=== PATIENT | female | born 1945 | race Caucasian/White ===

== ENCOUNTER 2016-05-25 15:07 | Inpatient (IN) | payer OTHER, MEDICARE ==
[2016-05-25] MEDS ORDERED: CARBOXYMETHYLCELLULOSE 1% 0.4 ML DROPERETTE EACHEYE PRN (16:27)
[2016-05-25] MEDS: PRESERVISION AREDS2 FORMULA EYE VIT 1 EACH PO SCH (17:43)
--- NOTE | 2016-05-25 17:55 | GHP ---
[f rep st] HISTORY AND PHYSICAL POST ADMISSION PHYSICIAN EVALUATION AND REHABILITATION TREATMENT PLAN. DATE OF ADMISSION: 05/25/2016 TIME OF EVALUATION: 0620. REFERRING FACILITY: [facility]. REFERRING PHYSICIAN: Dr. Mendoza IMPAIRMENT GROUP: [id number]. DATE OF ONSET: 05/21/2016. CONSULTING PHYSICIANS: She was seen in consultation by Orthopedic Surgery Service, Dr. Bobby, and with Neurosurgery. REHABILITATION DIAGNOSIS: Debility status post right femur fracture with history of left-sided weakness due to cerebrovascular accident. ETIOLOGIC DIAGNOSIS: Unilateral hip fracture. DATE OF SURGERY: 05/21/2016. HISTORY OF PRESENT ILLNESS: Mrs. Ruiz fell out of her power wheelchair on . She accidentally drove her power wheelchair over a curb. She fell on her right hip. There was no head trauma or loss of consciousness. She had pain. She went to the emergency department at [facility], where she was diagnosed with a right femur fracture. She was taken to surgery and was treated with an ORIF using an intramedullary implant. Hospital stay was complicated by anemia, for which she received a transfusion as well as IV iron. She had constipation, which was treated with suppository. She had pain, which eventually was managed with a hydrocodone/acetaminophen combination. She was concerned regarding anticoagulation as she has had a history of 2 hemorrhagic brainstem strokes; however, eventually with Neurosurgery consultation she was persuaded that her current risk of a deep venous thrombosis outweighs the risk of a recurrent intracranial bleed, so she was treated with enoxaparin. STUDIES AND LABS IN THE HOSPITAL: She had anemia with a hemoglobin as low as 6.7 yesterday morning. There was also thrombocytopenia with most recent platelet count being 71. This had remained stable over 3 days. Renal function and electrolytes were within normal limits. Chest x-ray done on 05/21/2016 was without any significant findings. PRECAUTIONS: She is a fall risk. She has orthopedic precautions with nonweightbearing on the right lower extremity. ACTIVE COMORBIDITIES: She has the tier 3 comorbidity of hemiparesis; otherwise , she has no tier 1, tier 2, or tier 3 comorbidities. PAST MEDICAL HISTORY: 1. 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 2. Recurrent brainstem hemorrhage in 1990. 3. Osteoporosis. 4. Depression. 5. Clostridium difficile diarrhea. 6. 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 7. Left femur fracture in 2014. PAST SURGICAL HISTORY: 1. Craniectomy. 2. Left femur ORIF. 3. Hysterectomy. 4. Abdominal surgery. 5. Elbow surgery. PRE-HOSPITAL MEDICATIONS: 1. Baclofen 10 mg p.o. t.i.d. 2. Clonazepam 1 mg p.o. twice b.i.d. 3. Duloxetine 60 mg p.o. q.h.s. 4. Hydrocodone/acetaminophen 5/325 one p.o. q.6 hours p.r.n. 5. Trimethoprim/sulfamethoxazole 160/800 mg 1 p.o. daily. 6. Vitamin A, lutein, minerals 1000/60 units daily. 7. Cholecalciferol 1000 units p.o. daily. 8. PreserVision vitamin 1 p.o. daily. ADMISSION MEDICATIONS: 1. Baclofen 10 p.o. t.i.d. 2. PreserVision 1 p.o. b.i.d. 3. Carboxymethylcellulose 1 drop each eye q.4 hours p.r.n. 4. Cholecalciferol 1000 units p.o. daily. 5. Clonazepam 1 mg p.o. b.i.d. 6. Duloxetine 60 mg p.o. q.h.s. 7. Enoxaparin 30 mg subcutaneous daily. 8. Ferrous sulfate 325 mg p.o. b.i.d. 9. Hydrocodone/acetaminophen 5/325 one tablet p.o. q.6 hours p.r.n. 10. Sulfamethoxazole/trimethoprim 800/160 one p.o. daily. ALLERGIES: Rifampin; she had anaphylaxis. FAMILY HISTORY: Noncontributory. SOCIAL HISTORY: She is retired. 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 She lives with her . She has had 3 sons: 1 lives locally, one lives in [place] , and 1 lives in [facility]. The son and [id number] from [place] are in town visiting at present. She is a nonsmoker and nondrinker. REVIEW OF SYSTEMS: She reports pain is adequately controlled. She denies dyspnea, though she was using oxygen. There is no cough. She denies chest pain and palpitations. She denies nausea, vomiting, constipation, and diarrhea. She reports a chronic subluxation of the left shoulder, but she is able to pull it back into place. She has some weakness with the left upper extremity but is able to use it to a certain extent. She has been ambulating. 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 She reports some abnormal sensation on the left upper and lower extremities, as if she is wearing a glove, and a poor position sense, especially with left upper extremity. She has had some weight loss in recent months. Other than that, a 10-point review of systems is negative. PHYSICAL EXAMINATION: VITAL SIGNS: Blood pressure is 90/49, heart rate is 96, respiratory rate is 16, oxygen saturation is 94% on 2 L, temperature is 37.3 degrees centigrade. Her weight is 44.9 kg for a body mass index of 18.1. GENERAL: This is a frail-appearing woman who appears her chronologic age, thin , cooperative, and in no acute distress. HEENT: Extraocular movements are intact. Pupils are equal, round, and reactive to light. Mucous membranes are moist. Dentition is in good condition. NECK: Supple but has mild right torticollis. HEART: Regular rate and rhythm with no murmurs, rubs, or gallops. LUNGS: Clear to auscultation bilaterally. ABDOMEN: Soft, nontender , nondistended with normoactive bowel sounds and no hepatosplenomegaly. EXTREMITIES: There is no cyanosis, clubbing, or edema. Radial and dorsalis pedis pulses are 2+ bilaterally. NEUROLOGIC: She is alert and oriented x3. Cranial nerves 2-12 are grossly intact. There is mild right torticollis. Right upper extremity strength is 5/5. Left upper extremity hand lead slot technician, biceps, and triceps are 4/5. Deltoid was not tested due to her positioning in bed. Lower extremity strength was not tested. Deep tendon reflexes are 2+ bilaterally at the biceps, patellar, and Achilles tendons. Sensation is intact to light touch and intact to double simultaneous stimulation. CURRENT LEVEL OF FUNCTION: Per the preadmission screen. Regarding diet, feeding, and swallowing, she was tolerating a regular-textured diet with thin liquids, and had been assessed by Speech Therapy with dysphagia ruled out. She required supervision and setup. Regarding grooming, she required minimal assistance seated. Regarding bathing, she required assistance. Regarding dressing, she was dependent for lower extremity dressing. For toileting, she required maximal assistance. For bladder function, she required maximal assistance. For bed mobility, she required [id number] assistance, verbal cues, and use of the bed rail. For transfers: [id number], was accomplished with maximal assistance of 2 people. She required tactile as well as verbal cues. Equipment: She was using a wheelchair. Balance was poor. Endurance was poor. Cognition: She needed tactile and verbal cues. IMPRESSION: Mrs. Ruiz is a 70-year-old woman who had an unfortunate fall from her motorized wheelchair and suffered a right femur fracture. She has had ORIF. She is nonweightbearing on the right lower extremity. This, along with her chronic weakness in the left upper extremity and lower extremity creates a challenge for her in terms of transfers, mobility, and activities of daily living. Hospital course was complicated by anemia and hypoxemia. She remained quite anemic the day before discharge. She received blood transfusions as well as IV iron supplementation. Thrombocytopenia was noted, but likely was not progressive, not consistent with heparin-associated thrombocytopenia, though its etiology is unclear. She is appropriate for inpatient rehabilitation where she will benefit from physical and occupational therapies to optimize her mobility and activities of daily living. She needs nursing care regarding fall risk, bowel and bladder, skin integrity, wound healing, and medication management. She needs physician care regarding thrombosis risk, hemorrhage risk, risk for neurologic deterioration, infectious risk, and pain management. Her goal is to return home with her family. For a safe discharge, it is hoped that she will be able to return to her previous level of function. Her mobility will primarily be by motorized wheelchair. She is likely to need some help with activities of daily living from her family. She will be able to ambulate short distances. She will need to be medically stable. There will be education on medications for the patient and her family, and there will be family training. She will receive therapy with physical therapy and occupational therapy for 60- 90 minutes per day per discipline on 5-7 days a week. Her expected duration of stay is 14-16 days. It is anticipated that upon discharge, she will benefit from home health services including physical therapy and occupational therapy. ASSESSMENT AND PLAN: 1. Debility and nonweightbearing on the right lower extremity following a fall from power wheelchair and right femur fracture, status post open reduction/ internal fixation. Physical and occupational therapy to optimize mobility and activities of daily living. 2. History of hemorrhagic cerebrovascular accident x2 in the brainstem with chronic left upper and lower extremity weakness. She was able to ambulate prior to her fall and fracture. 3. Osteoporosis. Continue cholecalciferol. She reports that she has been on bisphosphonates in the past and subsequently teriparatide. She has been followed by a bone specialist at [facility] at the [facility], though she has not had a DEXA scan in about a year and a half. Will continue cholecalciferol and will check a vitamin D level in the morning. 4. Anemia was quite significant postsurgical, as well as thrombocytopenia. Will check a CBC in the morning. 5. 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 Continue baclofen. 6. Pain management. She appears to be in very little pain considering what she has gone through. I will liberalize the dosing of the hydrocodone/ acetaminophen combination to 1-2 tablets q.4 hours p.r.n. 7. Depression. Continue her psychiatric medications of duloxetine and clonazepam. 8. History of chronic urinary tract infections. Continue suppressive therapy with trimethoprim/sulfamethoxazole. 9. History of Clostridium difficile. Unclear how remote this was. She has no signs or symptoms of Clostridium difficile. Will observe for diarrhea. 10. Prophylaxis. There was a neurosurgery consultation while she was in the hospital, and risk of deep vein thrombosis currently outweighs the risk of recurrent intracerebral hemorrhage. She will be continued on enoxaparin 30 mg subcutaneous daily. She does not appear to have any need for gastrointestinal prophylaxis. /[id number]/MODL MTDD
[2016-05-25] MEDS: HYDROCODONE/APAP 5/325 TAB PO PRN (19:34)
[2016-05-25] MEDS: BACLOFEN 10 MG TAB PO SCH (20:30)
[2016-05-25] MEDS: clonazePAM 1 MG TAB PO SCH (20:30)
[2016-05-25] MEDS ORDERED: DULoxetine 60 MG CAP PO SCH (21:00)
[2016-05-26] MEDS: HYDROCODONE/APAP 5/325 TAB PO PRN ×3 (02:10→20:27)
[2016-05-26 08:33] LABS: ABSOLUTE NRBC COUNT 0.02 10^3/uL (0-0.01); ADD DIFF? YES; ADD MORPH? NO; ADD SCAN? NO; ATYPICAL LYMPHOCYTE FLAG 0 (0-99); FRAGMENT RBC FLAG 0 (0-99); HEMATOCRIT 22.4 % (38.0-47.0); HEMOGLOBIN 7.1 g/dL (12.6-16.3); LEFT SHIFT FLG 30 (0-99); LIPEMIA HEMOLYSIS FLAG 80 (0-99); MEAN CELL HEMOGLOBIN 29.8 pg (27.9-34.1); MEAN CELL HEMOGLOBIN CONCENTR. 31.7 g/dL (32.4-36.7); MEAN CELL VOLUME 94.1 fL (81.5-99.8); MEAN PLATELET VOLUME 9.6 fL (8.7-11.7); NRBC-AUTO% 0.3 % (0.0-0.2); PLATELET CLUMPS FLAG 0 (0-99); PLATELET COUNT 106 10^3/uL (150-400); RED BLOOD CELL COUNT 2.38 10^6/uL (4.18-5.33); RED CELL DISTRIBUTION WIDTH 13.6 % (11.5-15.2)
[2016-05-26 08:56] LABS: ANION GAP 4 mEq/L (8-16); CALCIUM 7.9 mg/dL (8.5-10.4); CARBON DIOXIDE 36 mEq/l (22-31); CHLORIDE 101 mEq/L (97-110); CREATININE 0.4 mg/dL (0.6-1.0); GLOMERULAR FILTRATION RATE > 60; GLUCOSE 91 mg/dL (70-100); POTASSIUM 4.1 mEq/L (3.5-5.2); SODIUM 141 mEq/L (134-144)
--- NOTE | 2016-05-26 09:01 | SOAPPROG ---
SOAP Progress Note Assessment/Plan: Assessment: * Debility and nonweightbearing on the right lower extremity following a fall from power wheelchair and right femur fracture, status post open reduction/ internal fixation on 05/21/16. Physical and occupational therapy to optimize mobility and activities of daily living. * Pain management. Inadequate control overnight. Per her request, schedule hydrocodone/acetaminophen Q 4 hr; will also prescribe 1 tab cq.4 hours p.r.n. She declines option of long-acting morphine overnight. 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 She was able to ambulate prior to her fall and fracture. * Osteoporosis. Continue cholecalciferol. Has adequate replacement pre labs . She reports that she has been on bisphosphonates in the past and subsequently teriparatide. She has been followed by a bone specialist at [facility] at the [facility], though she has not had a DEXA scan in about a year and a half. * Anemia was quite significant postsurgical, as well as thrombocytopenia. Improving on CBC 05/26/16. 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 Continue baclofen. * Depression. Continue her psychiatric medications of duloxetine and clonazepam. * History of chronic urinary tract infections. Continue suppressive therapy with trimethoprim/sulfamethoxazole. * History of Clostridium difficile. Unclear how remote this was. She has no signs or symptoms of Clostridium difficile. Will observe for diarrhea. * Prophylaxis. There was a neurosurgery consultation while she was in the hospital, and risk of deep vein thrombosis currently outweighs the risk of recurrent intracerebral hemorrhage. She will be continued on enoxaparin 30 mg subcutaneous daily. She does not appear to have any need for gastrointestinal prophylaxis. 05/26/16 13:40 Subjective: Would like hydrocodone/acetaminophen more frequently. Was awake with pain at about 0500. O/W w/out complaint. pain in in R thigh to knee. No cough/dyspnea, f/c. BM yesterday. Objective: Vital Signs Temp Pulse Resp BP Pulse Ox 37.0 C 78 16 107/59 L 94 05/26/16 05:14 05/26/16 05:14 05/26/16 05:14 05/26/16 05:14 05/26/16 05:14 Laboratory Results 05/26/16 06:00 05/26/16 06:00 05/25/16 05/26/16 05/27/16 05:59 05:59 05:59 Intake Total 340 Output Total 1100 Balance -760 Physical Exam - Physical Exam General Appearance: WD/WN, alert, no apparent distress, thin Respiratory: normal breath sounds, No crackles, No rhonchi, No wheezing Cardiac/Chest: regular rate, rhythm, No edema, No diastolic murmur, No systolic murmur Skin: normal color, warm/dry Neuro/Psych: alert, normal mood/affect, oriented x 3 ICD10 Worksheet Patient Problems: Problems Problem Status Onset Hemiparesis affecting left side as late effect of cerebrovascular accident Acute Right femoral fracture Acute S/P ORIF (open reduction internal fixation) fracture Acute
--- NOTE | 2016-05-26 09:01 | PDOREHIP ---
Admission [facility] - Admission - 3 Day Assessment Period Admission Date/Day 1: 05/25/16 Day 2: 05/26/16 Day 3: 05/27/16 - Active Diagnoses Comorbidities and Co-existing Conditions at Admission: 61263. None of the Above - Skin Conditions Unhealed Pressure Ulcer (1 or more/Stage 1 or >)-Admission: 0. No
[2016-05-26] MEDS: CHOLECALCIFEROL VIT D3 1,000 UNITS TAB PO SCH (09:06)
[2016-05-26] MEDS: SULFAMETHOX/TMP 800/160 MG 1 TAB PO SCH (09:06)
[2016-05-26] MEDS: BACLOFEN 10 MG TAB PO SCH ×3 (09:06→20:28)
[2016-05-26] MEDS: clonazePAM 1 MG TAB PO SCH ×2 (09:07→20:29)
[2016-05-26] MEDS: ENOXAPARIN 30 MG/0.3 ML SYR SC SCH (09:07)
[2016-05-26] MEDS: FERROUS SULFATE 325 MG TAB PO SCH (09:07)
[2016-05-26] MEDS: PRESERVISION AREDS2 FORMULA EYE VIT 1 EACH PO SCH (09:13)
[2016-05-26 09:19] LABS: PLATELET ESTIMATE DECREASED (ADEQ); POLYCHROMASIA 1+
[2016-05-26 09:20] LABS: % SATURATION 16 % (20-55); TOTAL IRON BINDING CAPACITY 184 ug/dL (260-490)
[2016-05-26] MEDS: HYDROCODONE/APAP 5/325 TAB PO SCH ×4 (14:26→23:54)
[2016-05-26] MEDS ORDERED: [UNRECOGNIZED DRUG - OTHER] PO SCH (18:00)
[2016-05-26] MEDS: DULoxetine 30 MG CAP PO SCH (20:29)
[2016-05-27] MEDS: HYDROCODONE/APAP 5/325 TAB PO SCH ×6 (03:54→23:38)
[2016-05-27] MEDS: HYDROCODONE/APAP 5/325 TAB PO PRN ×2 (07:08→20:12)
[2016-05-27] MEDS: BACLOFEN 10 MG TAB PO SCH ×3 (08:38→20:11)
[2016-05-27] MEDS: SULFAMETHOX/TMP 800/160 MG 1 TAB PO SCH (08:38)
[2016-05-27] MEDS: CHOLECALCIFEROL VIT D3 1,000 UNITS TAB PO SCH (08:38)
[2016-05-27] MEDS: ENOXAPARIN 30 MG/0.3 ML SYR SC SCH (08:38)
[2016-05-27] MEDS: FERROUS SULFATE 325 MG TAB PO SCH (08:38)
[2016-05-27] MEDS: clonazePAM 1 MG TAB PO SCH ×2 (08:38→20:12)
[2016-05-27] MEDS: CENTRUM MVI PO SCH (09:00)
[2016-05-27] MEDS: [UNRECOGNIZED DRUG - OTHER] PO SCH ×2 (09:00→17:25)
[2016-05-27] MEDS: SENNOSIDES 1 TAB PO PRN (10:15)
[2016-05-27] MEDS: POLYETHYLENE GLYCOL 3350 17 GM PKT PO PRN (10:15)
--- NOTE | 2016-05-27 11:39 | SOAPPROG ---
SOAP Progress Note Assessment/Plan: Assessment: * Debility and nonweightbearing on the right lower extremity following a fall from power wheelchair and right femur fracture, status post open reduction/ internal fixation on 05/21/16. Physical and occupational therapy to optimize mobility and activities of daily living. * Pain management. Much improved. Continue current pain regimen: scheduled hydrocodone/acetaminophen Q 4 hr and 1 tab q.4 hours p.r.n. She declines option of long-acting morphine overnight. 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 She was able to ambulate CGA prior to her fall and fracture. * Osteoporosis. Continue cholecalciferol. Has adequate replacement pre labs . She reports that she has been on bisphosphonates in the past and subsequently teriparatide. She has been followed by a bone specialist at [facility] at the [facility], though she has not had a DEXA scan in about a year and a half. * Anemia was quite significant postsurgical, as well as thrombocytopenia. Improving on CBC 05/26/16. 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 Continue baclofen. * Depression. Continue her psychiatric medications of duloxetine and clonazepam. * History of chronic urinary tract infections. Continue suppressive therapy with trimethoprim/sulfamethoxazole. * History of Clostridium difficile. Unclear how remote this was. She has no signs or symptoms of Clostridium difficile. Will observe for diarrhea. * Prophylaxis. There was a neurosurgery consultation while she was in the hospital, and risk of deep vein thrombosis currently outweighs the risk of recurrent intracerebral hemorrhage. She will be continued on enoxaparin 30 mg subcutaneous daily. She does not appear to have any need for gastrointestinal prophylaxis. 05/27/16 11:40 Subjective: No complaints. Slept better. Had R leg muscle spasms at bedtime when positioned on L side for decubitus ulcer prevention; resolved after taking baclofen, hydrocodone/APAP and clonazepam. Took another PRN hydrocodone after repositioning to use bed paris overnight. No cough/dyspnea, f/c. Objective: Vital Signs Temp Pulse Resp BP Pulse Ox 36.8 C 81 17 104/60 95 05/27/16 06:46 05/27/16 06:46 05/27/16 06:46 05/27/16 06:46 05/27/16 06:46 Laboratory Results 05/26/16 06:00 05/26/16 06:00 05/26/16 05/27/16 05/28/16 05:59 05:59 05:59 Intake Total 340 900 Output Total 1100 1970 300 Balance -760 -1350 -300 Physical Exam - Physical Exam General Appearance: WD/WN, alert, no apparent distress, thin, other (Sitting up in wheelchair) Respiratory: normal breath sounds, No crackles, No rhonchi, No wheezing Cardiac/Chest: regular rate, rhythm, No edema, No diastolic murmur, No systolic murmur Neuro/Psych: alert, normal mood/affect, oriented x 3, motor weakness (LUE) ICD10 Worksheet Patient Problems: Problems Problem Status Onset Hemiparesis affecting left side as late effect of cerebrovascular accident Acute Right femoral fracture Acute S/P ORIF (open reduction internal fixation) fracture Acute - ICD10 Problem Qualifiers (1) Right femoral fracture Qualifiers: Encounter type: sequela Femur location: F Fracture type: closed Open fracture type: O Fracture morphology: F Fracture alignment: F Salter- Booth Fracture Type: S Fracture healing: F (2) S/P ORIF (open reduction internal fixation) fracture (3) Hemiparesis affecting left side as late effect of cerebrovascular accident
[2016-05-27] MEDS: DULoxetine 30 MG CAP PO SCH (20:12)
[2016-05-28] MEDS: HYDROCODONE/APAP 5/325 TAB PO SCH ×6 (03:23→20:52)
[2016-05-28] MEDS: CENTRUM MVI PO SCH (08:05)
[2016-05-28] MEDS: ENOXAPARIN 30 MG/0.3 ML SYR SC SCH (08:05)
[2016-05-28] MEDS: [UNRECOGNIZED DRUG - OTHER] PO SCH ×2 (08:05→17:44)
[2016-05-28] MEDS: clonazePAM 1 MG TAB PO SCH ×2 (08:06→20:52)
[2016-05-28] MEDS: POLYETHYLENE GLYCOL 3350 17 GM PKT PO PRN (08:06)
[2016-05-28] MEDS: SULFAMETHOX/TMP 800/160 MG 1 TAB PO SCH (08:06)
[2016-05-28] MEDS: FERROUS SULFATE 325 MG TAB PO SCH (08:06)
[2016-05-28] MEDS: BACLOFEN 10 MG TAB PO SCH ×4 (08:06→20:52)
[2016-05-28] MEDS: CHOLECALCIFEROL VIT D3 1,000 UNITS TAB PO SCH (08:06)
[2016-05-28] MEDS ORDERED: MAGNESIUM HYDROXIDE 30 ML UDCUP PO PRN (08:45)
--- NOTE | 2016-05-28 10:09 | SOAPPROG ---
SOAP Progress Note Assessment/Plan: Assessment: * Debility and nonweightbearing on the right lower extremity following a fall from power wheelchair and right femur fracture, status post open reduction/ internal fixation on 05/21/16. Initial FIM 67. 2-person transfer, sitting balance poor, very little strength LLE, no increased tone. routinely assists with dressing and bathing so OT goals are limited. Continue physical and occupational therapy to optimize mobility and activities of daily living. * Dysphagia: neck soft tissue stiffness, receiving myofascial work per WIPING RAG WASHER. * Pain management. Inadequate control overnight. Per her request, scheduled hydrocodone/acetaminophen Q 4 hr and prescribed 1 tab q.4 hours p.r.n. She declines option of long-acting morphine overnight. Muscle spasm L thigh when lays down at night: increase HS baclofen to 20 mg; continue 10 mg morning and mid-day. ROM exercised for leg extension. Ordered massage therapy consult. 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 She was able to ambulate prior to her fall and fracture. * Osteoporosis. Continue cholecalciferol. Has adequate replacement pre labs . She reports that she has been on bisphosphonates in the past and subsequently teriparatide. She has been followed by a bone specialist at [facility] at the [facility], though she has not had a DEXA scan in about a year and a half. * Anemia was quite significant postsurgical, as well as thrombocytopenia. Improving on CBC 05/26/16. Iron deficient, on supplement. * Hypoxia. Likely due to anemia. 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 Continue baclofen. * Depression. Continue her psychiatric medications of duloxetine and clonazepam. * History of chronic urinary tract infections. Continue suppressive therapy with trimethoprim/sulfamethoxazole. * History of Clostridium difficile. Unclear how remote this was. She has no signs or symptoms of Clostridium difficile. Will observe for diarrhea. * Prophylaxis. There was a neurosurgery consultation while she was in the hospital, and risk of deep vein thrombosis currently outweighs the risk of recurrent intracerebral hemorrhage. She will be continued on enoxaparin 30 mg subcutaneous daily. She does not appear to have any need for gastrointestinal prophylaxis. Attended staffing, 15 min. D/W case mgmt, nursing, PT, OT, WIPING RAG WASHER, rental sales agent, pharmacist. Goal to try to achieve 1-person transfers and bed mobility. Repeat staffing in 5 days, 05/23/16. had recent back surgery and is limited in ability to help. Consider SNF discharge on 06/04/16. 05/28/16 12:15 Subjective: C/O "rough night." When she lay down to sleep she had muscle spasms in R thigh which caused pain. Also had difficulty positioning head optimally for neck comfort. Requests MOM for bowels, per usual habit at home. O/W w/out complaint. Objective: Vital Signs Temp Pulse Resp BP Pulse Ox 37.3 C 94 16 94/47 L 92 05/28/16 08:00 05/28/16 08:00 05/28/16 08:00 05/28/16 08:00 05/28/16 08:00 Laboratory Results 05/26/16 06:00 05/26/16 06:00 05/27/16 05/28/16 05/29/16 05:59 05:59 05:59 Intake Total 900 Output Total 2250 700 300 Balance -1350 -700 -300 - Time Spent With Patient Time Spent With Patient: Greater than 35 mintes dawn time today, including more than 50% of time in coordination of care during staffing meeting, and counseling patient. Physical Exam - Physical Exam General Appearance: WD/WN, alert, no apparent distress, thin Respiratory: No respiratory distress, No accessory muscle use Cardiac/Chest: No edema Extremities: other (NT over thighs) Neuro/Psych: alert, normal mood/affect, oriented x 3, motor weakness (LUE & LLE) ICD10 Worksheet Patient Problems: Problems Problem Status Onset Hemiparesis affecting left side as late effect of cerebrovascular accident Acute Right femoral fracture Acute S/P ORIF (open reduction internal fixation) fracture Acute
[2016-05-28] MEDS: BISACODYL 10 MG SUPP PR PRN (16:11)
[2016-05-28] MEDS: DULoxetine 30 MG CAP PO SCH (20:51)
[2016-05-29] MEDS: HYDROCODONE/APAP 5/325 TAB PO SCH ×6 (00:16→21:24)
[2016-05-29] MEDS: FERROUS SULFATE 325 MG TAB PO SCH (09:12)
[2016-05-29] MEDS: SULFAMETHOX/TMP 800/160 MG 1 TAB PO SCH (09:12)
[2016-05-29] MEDS: BACLOFEN 10 MG TAB PO SCH ×4 (09:12→21:23)
[2016-05-29] MEDS: CHOLECALCIFEROL VIT D3 1,000 UNITS TAB PO SCH (09:13)
[2016-05-29] MEDS: [UNRECOGNIZED DRUG - OTHER] PO SCH ×2 (09:13→17:53)
[2016-05-29] MEDS: clonazePAM 1 MG TAB PO SCH ×2 (09:13→21:23)
[2016-05-29] MEDS: ENOXAPARIN 30 MG/0.3 ML SYR SC SCH (09:13)
[2016-05-29] MEDS: CENTRUM MVI PO SCH (09:14)
[2016-05-29] MEDS: BISACODYL 10 MG SUPP PR PRN (15:15)
--- NOTE | 2016-05-29 15:21 | SOAPPROG ---
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 05/29/2016- Doubling MOM for bowel management. Baclofen doubled last night for spasticity management, helpful per patient. Discussed monitoring of anemia with patient and her , and also discussed possible adjunct medications for spasticity management, if further rx needed. Remainder of plan unchanged. Labs reviewed, evidence of RBC production. 37 minutes were spent on the floor on patient care, the majority of which was spent in the counseling and coordination of care regarding anemia, spasticity management, and therapy goals. * Debility and nonweightbearing on the right lower extremity following a fall from power wheelchair and right femur fracture, status post open reduction/ internal fixation on 05/21/16. Initial FIM 67. 2-person transfer, sitting balance poor, very little strength LLE, no increased tone. routinely assists with dressing and bathing so OT goals are limited. Continue physical and occupational therapy to optimize mobility and activities of daily living. * Dysphagia: neck soft tissue stiffness, receiving myofascial work per [employer] EXAMINER. * Pain management. Inadequate control overnight. Per her request, scheduled hydrocodone/acetaminophen Q 4 hr and prescribed 1 tab q.4 hours p.r.n. She declines option of long-acting morphine overnight. Muscle spasm L thigh when lays down at night: increase HS baclofen to 20 mg; continue 10 mg morning and mid-day. ROM exercised for leg extension. Ordered massage therapy consult. 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 She was able to ambulate prior to her fall and fracture. * Osteoporosis. Continue cholecalciferol. Has adequate replacement per labs . She reports that she has been on bisphosphonates in the past and subsequently teriparatide. She has been followed by a bone specialist at [facility] at the [facility], though she has not had a DEXA scan in about a year and a half. * Anemia was quite significant postsurgical, as well as thrombocytopenia. Improving on CBC 4/19/17. Iron deficient, on supplement, labs indicate RBC production. Repeat CBC on 05/31. * Hypoxia. Likely due to anemia. Monitor. 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 Continue baclofen. * Depression. Continue her psychiatric medications of duloxetine and clonazepam. * History of chronic urinary tract infections. Continue suppressive therapy with trimethoprim/sulfamethoxazole. * History of Clostridium difficile. Unclear how remote this was. She has no signs or symptoms of Clostridium difficile. Will observe for diarrhea. * Prophylaxis. There was a neurosurgery consultation while she was in the hospital, and risk of deep vein thrombosis currently outweighs the risk of recurrent intracerebral hemorrhage. She will be continued on enoxaparin 30 mg subcutaneous daily. She does not appear to have any need for gastrointestinal prophylaxis. Goal to try to achieve 1-person transfers and bed mobility. had recent back surgery and is limited in ability to help. Consider SNF discharge on depending on progress and ability to DC home. 05/29/16 15:10 Subjective: CC: spasticity and anemia No acute events overnight. Pt notes increase in spasticity post surgery, but improved on increased dose of nighttime baclofen. May have tried tizanidine in the past, has not tried dantrolene. No new numbness, tingling, or weakness, pain controlled. Working well in therapies. low H&H, evidence of RBC production. Requesting increase of MOM to home dose for bowel management. Objective: Vital Signs Temp Pulse Resp BP Pulse Ox 37.1 C 87 16 110/68 95 05/29/16 06:20 05/29/16 06:20 05/29/16 06:20 05/29/16 06:20 05/29/16 06:20 Laboratory Results 05/26/16 06:00 05/26/16 06:00 05/28/16 05/29/16 05/30/16 05:59 05:59 05:59 Intake Total 1900 300 Output Total 700 1200 600 Balance -700 700 -300 Physical Exam - Physical Exam General Appearance: alert, no apparent distress, other (in PWC) EENT: other (eyes flutter occasionally, normal for her), No scleral icterus (R) , No scleral icterus (L) Respiratory: No respiratory distress, No accessory muscle use Cardiac/Chest: regular rate, rhythm, No edema Skin: normal color, warm/dry Extremities: No pedal edema, No swelling Neuro/Psych: alert, normal mood/affect ICD10 Worksheet Patient Problems: Problems Problem Status Onset Hemiparesis affecting left side as late effect of cerebrovascular accident Acute Right femoral fracture Acute S/P ORIF (open reduction internal fixation) fracture Acute
[2016-05-29] MEDS: DULoxetine 30 MG CAP PO SCH (21:24)
[2016-05-30] MEDS: HYDROCODONE/APAP 5/325 TAB PO SCH ×6 (01:24→20:00)
[2016-05-30] MEDS: ENOXAPARIN 30 MG/0.3 ML SYR SC SCH (09:09)
[2016-05-30] MEDS: BACLOFEN 10 MG TAB PO SCH ×4 (09:09→21:33)
[2016-05-30] MEDS: SULFAMETHOX/TMP 800/160 MG 1 TAB PO SCH (09:09)
[2016-05-30] MEDS: clonazePAM 1 MG TAB PO SCH ×2 (09:10→20:01)
[2016-05-30] MEDS: MAGNESIUM HYDROXIDE 30 ML UDCUP PO SCH (09:10)
[2016-05-30] MEDS: FERROUS SULFATE 325 MG TAB PO SCH (09:10)
[2016-05-30] MEDS: CHOLECALCIFEROL VIT D3 1,000 UNITS TAB PO SCH (09:10)
[2016-05-30] MEDS: [UNRECOGNIZED DRUG - OTHER] PO SCH ×2 (09:11→18:31)
[2016-05-30] MEDS: CENTRUM MVI PO SCH (09:12)
[2016-05-30] MEDS ORDERED: BACLOFEN 10 MG TAB PO PRN (13:57)
--- NOTE | 2016-05-30 14:05 | SOAPPROG ---
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 05/30/2016- adding additional baclofen PRN for breakthrough spasticity at night, otherwise doing well. * Debility and nonweightbearing on the right lower extremity following a fall from power wheelchair and right femur fracture, status post open reduction/ internal fixation on 05/21/16. Initial FIM 67. 2-person transfer, sitting balance poor, very little strength LLE, no increased tone. routinely assists with dressing and bathing so OT goals are limited. Continue physical and occupational therapy to optimize mobility and activities of daily living. * Dysphagia: neck soft tissue stiffness, receiving myofascial work per LABEL STAMPER. * Pain management. Inadequate control overnight. Per her request, scheduled hydrocodone/acetaminophen Q 4 hr and prescribed 1 tab q.4 hours p.r.n. She declines option of long-acting morphine overnight. Muscle spasm L thigh when lays down at night: increase HS baclofen to 20 mg; continue 10 mg morning and mid-day. ROM exercised for leg extension. Ordered massage therapy consult. 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 She was able to ambulate prior to her fall and fracture. * Osteoporosis. Continue cholecalciferol. Has adequate replacement per labs . She reports that she has been on bisphosphonates in the past and subsequently teriparatide. She has been followed by a bone specialist at [facility] at the [facility], though she has not had a DEXA scan in about a year and a half. * Anemia was quite significant postsurgical, as well as thrombocytopenia. Improving on CBC 05/26/16. Iron deficient, on supplement, labs indicate RBC production. Repeat CBC on 05/31. * Hypoxia. Likely due to anemia. Monitor. 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 Continue baclofen. * Depression. Continue her psychiatric medications of duloxetine and clonazepam. * History of chronic urinary tract infections. Continue suppressive therapy with trimethoprim/sulfamethoxazole. * History of Clostridium difficile. Unclear how remote this was. She has no signs or symptoms of Clostridium difficile. Will observe for diarrhea. * Prophylaxis. There was a neurosurgery consultation while she was in the hospital, and risk of deep vein thrombosis currently outweighs the risk of recurrent intracerebral hemorrhage. She will be continued on enoxaparin 30 mg subcutaneous daily. She does not appear to have any need for gastrointestinal prophylaxis. Goal to try to achieve 1-person transfers and bed mobility. had recent back surgery and is limited in ability to help. Consider SNF discharge on depending on progress and ability to DC home. 05/29/16 15:10 05/30/16 14:02 Subjective: CC: spasticity No acute events overnight. Continues to have some spasticity that keeps her awake, around 1 AM, wondering if additional baclofen may be helpful. Also counseled on the importance of stretching as part of the spasticity management strategy. No other new symptoms, no dyspnea or chest pain. Participating well in therapies. Objective: Vital Signs Temp Pulse Resp BP Pulse Ox 37.1 C 69 15 87/49 L 95 05/30/16 06:46 05/30/16 06:46 05/30/16 06:46 05/30/16 06:46 05/30/16 06:46 Laboratory Results 05/26/16 06:00 05/26/16 06:00 05/29/16 05/30/16 05/31/16 05:59 05:59 05:59 Intake Total 1900 600 300 Output Total 1200 1200 Balance 700 -600 300 Physical Exam - Physical Exam General Appearance: alert, no apparent distress, other (In PWC, spouse in room as well) EENT: other (paroxysmal eye flutter), No scleral icterus (R), No scleral icterus (L) Respiratory: No respiratory distress, No accessory muscle use Skin: normal color, warm/dry Extremities: No pedal edema, No swelling Neuro/Psych: alert, normal mood/affect, other (1 beat clonus on right ankle, no juan spasticity appreciated. ) ICD10 Worksheet Patient Problems: Problems Problem Status Onset Hemiparesis affecting left side as late effect of cerebrovascular accident Acute Right femoral fracture Acute S/P ORIF (open reduction internal fixation) fracture Acute
[2016-05-30] MEDS: HYDROCODONE/APAP 5/325 TAB PO PRN ×2 (15:57→23:21)
[2016-05-30] MEDS: DULoxetine 30 MG CAP PO SCH (20:00)
[2016-05-30] MEDS: SENNOSIDES 1 TAB PO PRN (22:19)
[2016-05-31] MEDS: HYDROCODONE/APAP 5/325 TAB PO SCH ×6 (03:27→21:18)
[2016-05-31 07:50] LABS: ADD DIFF? YES; ADD MORPH? NO; ADD SCAN? NO; ATYPICAL LYMPHOCYTE FLAG 30 (0-99); FRAGMENT RBC FLAG 0 (0-99); HEMATOCRIT 24.7 % (38.0-47.0); HEMOGLOBIN 7.7 g/dL (12.6-16.3); LEFT SHIFT FLG 30 (0-99); LIPEMIA HEMOLYSIS FLAG 80 (0-99); MEAN CELL HEMOGLOBIN 30.4 pg (27.9-34.1); MEAN CELL HEMOGLOBIN CONCENTR. 31.2 g/dL (32.4-36.7); MEAN CELL VOLUME 97.6 fL (81.5-99.8); MEAN PLATELET VOLUME 8.9 fL (8.7-11.7); PLATELET CLUMPS FLAG 0 (0-99); PLATELET COUNT 241 10^3/uL (150-400); RED BLOOD CELL COUNT 2.53 10^6/uL (4.18-5.33)
[2016-05-31] MEDS: MAGNESIUM HYDROXIDE 30 ML UDCUP PO SCH (08:21)
[2016-05-31] MEDS: SULFAMETHOX/TMP 800/160 MG 1 TAB PO SCH (08:22)
[2016-05-31] MEDS: BACLOFEN 10 MG TAB PO SCH ×4 (08:22→21:18)
[2016-05-31] MEDS: CHOLECALCIFEROL VIT D3 1,000 UNITS TAB PO SCH (08:22)
[2016-05-31] MEDS: clonazePAM 1 MG TAB PO SCH ×2 (08:22→21:18)
[2016-05-31] MEDS: FERROUS SULFATE 325 MG TAB PO SCH (08:22)
[2016-05-31] MEDS: ENOXAPARIN 30 MG/0.3 ML SYR SC SCH (08:23)
[2016-05-31] MEDS: [UNRECOGNIZED DRUG - OTHER] PO SCH ×2 (08:24→17:14)
[2016-05-31 08:32] LABS: PLATELET ESTIMATE ADEQUATE (ADEQ)
[2016-05-31 08:33] LABS: HYPERSEGMENTED NEUTROPHILS 1+; MACROCYTES 1+; POLYCHROMASIA 1+
[2016-05-31] MEDS: CENTRUM MVI PO SCH (08:36)
--- NOTE | 2016-05-31 15:07 | SOAPPROG ---
SOAP Progress Note Assessment/Plan: Assessment: * Debility and nonweightbearing on the right lower extremity following a fall from power wheelchair and right femur fracture, status post open reduction/ internal fixation on 05/21/16. Initial FIM 67. 2-person transfer, sitting balance poor, very little strength LLE, no increased tone; improving. routinely assists with dressing and bathing so OT goals are limited. Continue physical and occupational therapy to optimize mobility and activities of daily living. * Dysphagia: neck soft tissue stiffness, receiving myofascial work per PATCH WASHER. * Pain management. Inadequate control overnight. Per her request, scheduled hydrocodone/acetaminophen Q 4 hr and prescribed 1 tab q.4 hours p.r.n. Muscle spasm L thigh when lays down at night: increase HS baclofen to 20 mg; continue 10 mg morning and mid-day. ROM exercised for leg extension. Persisting despite increase in baclofen to up to 30 mg with PRN doses. Will d/c 2nd PRN baclofen order and initiate morphine SR 15 mg QHS. Ordered massage therapy consult. * Chronic benzodiazepine use. She wants to taper. Change AM clonazepam from 1 mg to 0.75 mg; continue 1 mg at HS. 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 She was able to ambulate prior to her fall and fracture. * Osteoporosis. Continue cholecalciferol. Has adequate replacement pre labs . She reports that she has been on bisphosphonates in the past and subsequently teriparatide. She has been followed by a bone specialist at [facility] at the [facility], though she has not had a DEXA scan in about a year and a half. * Anemia was quite significant postsurgical, as well as thrombocytopenia. Improving. Iron deficient, on supplement. * Hypoxia. Likely due to anemia. Improving. 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 Continue baclofen. * Depression. Continue her psychiatric medications of duloxetine and clonazepam. * History of chronic urinary tract infections. Continue suppressive therapy with trimethoprim/sulfamethoxazole. * History of Clostridium difficile. Unclear how remote this was. She has no signs or symptoms of Clostridium difficile. Will observe for diarrhea. * Prophylaxis. There was a neurosurgery consultation while she was in the hospital, and risk of deep vein thrombosis currently outweighs the risk of recurrent intracerebral hemorrhage. She will be continued on enoxaparin 30 mg subcutaneous daily. She does not appear to have any need for gastrointestinal prophylaxis. Goal to try to achieve 1-person transfers and bed mobility. Repeat staffing in 5 days, 05/23/16. had recent back surgery and is limited in ability to help. Consider SNF discharge on 06/04/16. 05/31/16 15:04 Subjective: Still has leg spasm when she lays down to sleep at night. Extra baclofen helped the first night but not since, even with further increase to 30 mg. [place] seems to help for about 2 hours then she awakens from the pain. She thinks if it did not hurt it would not bother her. Has been doing ROM with PT. Objective: Vital Signs Temp Pulse Resp BP Pulse Ox 36.6 C 80 17 104/61 95 05/31/16 06:16 05/31/16 06:16 05/31/16 06:16 05/31/16 06:16 05/31/16 06:16 Laboratory Results 05/31/16 06:25 05/26/16 06:00 05/30/16 05/31/16 06/01/16 05:59 05:59 05:59 Intake Total 600 1100 902 Output Total 1200 1525 650 Balance -600 -425 252 Physical Exam - Physical Exam General Appearance: WD/WN, alert, no apparent distress, thin Respiratory: normal breath sounds, No crackles, No rhonchi, No wheezing Cardiac/Chest: regular rate, rhythm, No edema Skin: normal color, warm/dry Neuro/Psych: alert, normal mood/affect, oriented x 3 ICD10 Worksheet Patient Problems: Problems Problem Status Onset Hemiparesis affecting left side as late effect of cerebrovascular accident Acute Right femoral fracture Acute S/P ORIF (open reduction internal fixation) fracture Acute
[2016-05-31] MEDS: BISACODYL 10 MG SUPP PR PRN (18:30)
[2016-05-31] MEDS: DULoxetine 30 MG CAP PO SCH (21:18)
[2016-05-31] MEDS: morphINE SR 15 MG TAB PO SCH (23:41)
[2016-06-01] MEDS: HYDROCODONE/APAP 5/325 TAB PO SCH ×6 (01:07→22:26)
[2016-06-01] MEDS: [UNRECOGNIZED DRUG - OTHER] PO SCH ×2 (08:51→17:20)
[2016-06-01] MEDS: BACLOFEN 10 MG TAB PO SCH ×4 (08:53→22:26)
[2016-06-01] MEDS: CHOLECALCIFEROL VIT D3 1,000 UNITS TAB PO SCH (08:53)
[2016-06-01] MEDS: ENOXAPARIN 30 MG/0.3 ML SYR SC SCH (08:53)
[2016-06-01] MEDS: SULFAMETHOX/TMP 800/160 MG 1 TAB PO SCH (08:54)
[2016-06-01] MEDS: CENTRUM MVI PO SCH (08:54)
[2016-06-01] MEDS: FERROUS SULFATE 325 MG TAB PO SCH (08:54)
[2016-06-01] MEDS: MAGNESIUM HYDROXIDE 30 ML UDCUP PO SCH (09:12)
[2016-06-01] MEDS ORDERED: clonazePAM 1 MG TAB PO ONE (09:30)
[2016-06-01] MEDS: clonazePAM 0.5 MG TAB PO SCH (09:38)
--- NOTE | 2016-06-01 14:22 | SOAPPROG ---
SOAP Progress Note Assessment/Plan: Assessment: * Debility and nonweightbearing on the right lower extremity following a fall from power wheelchair and right femur fracture, status post open reduction/ internal fixation on 05/21/16. Initial FIM 67. 2-person transfer, sitting balance poor, very little strength LLE, no increased tone; improving. routinely assists with dressing and bathing so OT goals are limited. Continue physical and occupational therapy to optimize mobility and activities of daily living. * Dysphagia: neck soft tissue stiffness, receiving myofascial work per CAFE COOK. * Pain management. Still with muscle spasm overnight but pain improved with morphine SR 15 mg at HS starting 05/31/16, and slept better. Continue, scheduled hydrocodone/acetaminophen Q 4 hr and prescribed 1 tab q.4 hours p.r.n ; HS baclofen to 20 mg; continue 10 mg morning and mid-day. ROM exercised for leg extension. HS baclofen 30 mg did not help. Ordered massage therapy consult. * Chronic benzodiazepine use. She wants to taper. Changed AM clonazepam from 1 mg to 0.75 mg starting 06/01/16; continue 1 mg at HS. 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 She was able to ambulate prior to her fall and fracture. * Osteoporosis. Continue cholecalciferol. Has adequate replacement pre labs . She reports that she has been on bisphosphonates in the past and subsequently teriparatide. She has been followed by a bone specialist at [facility] at the [facility], though she has not had a DEXA scan in about a year and a half. * Anemia was quite significant postsurgical, as well as thrombocytopenia. Improving. Iron deficient, on supplement. * Hypoxia. Likely due to anemia. Improving. 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 Continue baclofen. * Depression. Continue her psychiatric medications of duloxetine and clonazepam. * History of chronic urinary tract infections. Continue suppressive therapy with trimethoprim/sulfamethoxazole. * History of Clostridium difficile. Unclear how remote this was. She has no signs or symptoms of Clostridium difficile. Will observe for diarrhea. * Prophylaxis. There was a neurosurgery consultation while she was in the hospital, and risk of deep vein thrombosis currently outweighs the risk of recurrent intracerebral hemorrhage. She will be continued on enoxaparin 30 mg subcutaneous daily. She does not appear to have any need for gastrointestinal prophylaxis. Goal to try to achieve 1-person transfers and bed mobility. Repeat staffing in 5 days, 06/02/16. had recent back surgery and is limited in ability to help. Consider SNF discharge on 06/04/16. 06/01/16 14:17 Subjective: Did better overnight. Still had R thigh spasms but not as painful and was able to return to sleep. [place] groggy in AM but reports that morphine SR not given until 11:00PM. Bowels moving. Objective: Vital Signs Temp Pulse Resp BP Pulse Ox 36.8 C 69 18 88/45 L 97 06/01/16 08:00 06/01/16 08:00 06/01/16 08:00 06/01/16 08:00 06/01/16 08:00 Laboratory Results 05/31/16 06:25 05/26/16 06:00 05/31/16 06/01/16 06/02/16 05:59 05:59 05:59 Intake Total 1100 1702 280 Output Total 1525 2150 400 Balance -425 -448 -120 Physical Exam - Physical Exam General Appearance: WD/WN, alert, no apparent distress, thin Respiratory: No respiratory distress, No accessory muscle use Skin: normal color, warm/dry Neuro/Psych: alert, normal mood/affect, oriented x 3, motor weakness (LUE & LLE) ICD10 Worksheet Patient Problems: Problems Problem Status Onset Hemiparesis affecting left side as late effect of cerebrovascular accident Acute Right femoral fracture Acute S/P ORIF (open reduction internal fixation) fracture Acute
[2016-06-01] MEDS: HYDROCODONE/APAP 5/325 TAB PO PRN (19:16)
[2016-06-01] MEDS: morphINE SR 15 MG TAB PO SCH (19:16)
[2016-06-01] MEDS: DULoxetine 30 MG CAP PO SCH (21:22)
[2016-06-01] MEDS: clonazePAM 1 MG TAB PO SCH (21:22)
[2016-06-02] MEDS: HYDROCODONE/APAP 5/325 TAB PO SCH ×6 (03:42→22:01)
[2016-06-02] MEDS: [UNRECOGNIZED DRUG - OTHER] PO SCH ×2 (09:03→18:00)
[2016-06-02] MEDS: CHOLECALCIFEROL VIT D3 1,000 UNITS TAB PO SCH (09:04)
[2016-06-02] MEDS: BACLOFEN 10 MG TAB PO SCH ×4 (09:04→22:02)
[2016-06-02] MEDS: FERROUS SULFATE 325 MG TAB PO SCH (09:05)
[2016-06-02] MEDS: CENTRUM MVI PO SCH (09:06)
[2016-06-02] MEDS: MAGNESIUM HYDROXIDE 30 ML UDCUP PO SCH (09:06)
[2016-06-02] MEDS: SULFAMETHOX/TMP 800/160 MG 1 TAB PO SCH (09:07)
[2016-06-02] MEDS: clonazePAM 0.5 MG TAB PO SCH (09:09)
[2016-06-02] MEDS: ENOXAPARIN 30 MG/0.3 ML SYR SC SCH (09:13)
--- NOTE | 2016-06-02 09:40 | SOAPPROG ---
SOAP Progress Note Assessment/Plan: Assessment: * Debility and nonweightbearing on the right lower extremity following a fall from power wheelchair and right femur fracture, status post open reduction/ internal fixation on 05/21/16. Initial FIM 67 on 05/28/16; iincrease to 73 of . Slide-board transfer min - mod A depending on fatigue. Has stood in parallel bars keeping R foot off the floor. routinely assists with dressing and bathing so OT goals are limited but goal to reduce burden of care. Continue physical and occupational therapy to optimize mobility and activities of daily living. * Dysphagia: neck soft tissue stiffness, receiving myofascial work per BELT GLASS SANDER. * Pain management. Still with muscle spasm overnight but pain improved with morphine SR 15 mg at HS starting 05/31/16, and sleeping better. Continue, scheduled hydrocodone/acetaminophen Q 4 hr and prescribed 1 tab q.4 hours p.r.n ; HS baclofen to 20 mg; continue 10 mg morning and mid-day. ROM exercised for leg extension. HS baclofen 30 mg did not help. Ordered massage therapy consult. * Chronic benzodiazepine use. She wants to taper. Changed AM clonazepam from 1 mg to 0.75 mg starting 06/01/16; continue 1 mg at HS. 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 She was able to ambulate prior to her fall and fracture. * Anemia was quite significant postsurgical, as well as thrombocytopenia. Improving. Iron deficient, on supplement. * Hypoxia. Likely due to anemia. Improving. 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 Continue baclofen. * Osteoporosis. Continue cholecalciferol. Has adequate replacement pre labs . She reports that she has been on bisphosphonates in the past and subsequently teriparatide. She has been followed by a bone specialist at [facility] the [facility], though she has not had a DEXA scan in about a year and a half. * Depression. Continue her psychiatric medications of duloxetine and clonazepam. * History of chronic urinary tract infections. Continue suppressive therapy with trimethoprim/sulfamethoxazole. * History of Clostridium difficile. Unclear how remote this was. She has no signs or symptoms of Clostridium difficile. Will observe for diarrhea. * Prophylaxis. There was a neurosurgery consultation while she was in the hospital, and risk of deep vein thrombosis currently outweighs the risk of recurrent intracerebral hemorrhage. She will be continued on enoxaparin 30 mg subcutaneous daily. She does not appear to have any need for gastrointestinal prophylaxis. Attended staffing, 15 min. D/W case mgmt, nursing, chemical plant worker, pharmacist, PT, OT, BELT GLASS SANDER. Attended family meeting, 30 min, present. Plan discharge to SNF until weightbearing restored RLE. had recent back surgery and is limited in ability to help. Discharge planned for 06/10/16. 06/02/16 16:33 Subjective: R leg spasms and pain again last night; took Van along with morphine SR and had resolution, then slept well. No cough/dyspnea, no f/c. Objective: Vital Signs Temp Pulse Resp BP Pulse Ox 37.2 C 81 16 84/46 L 95 06/02/16 05:14 06/02/16 05:14 06/02/16 05:14 06/02/16 05:15 06/02/16 05:14 Laboratory Results 05/31/16 06:25 05/26/16 06:00 06/01/16 06/02/16 06/03/16 05:59 05:59 05:59 Intake Total 1702 560 150 Output Total 2150 1250 Balance -448 -690 150 - Time Spent With Patient Time Spent With Patient: Greater than 35 min floor time today, including more than 50% of time in coordination of care during staffing meeting and family meeting, and counseling patient and . Physical Exam - Physical Exam General Appearance: WD/WN, alert, no apparent distress Respiratory: normal breath sounds, No crackles, No rhonchi, No wheezing Cardiac/Chest: regular rate, rhythm, No edema, No diastolic murmur, No systolic murmur Skin: normal color, warm/dry Neuro/Psych: alert, normal mood/affect, oriented x 3, motor weakness (LUE & LLE) ICD10 Worksheet Patient Problems: Problems Problem Status Onset Hemiparesis affecting left side as late effect of cerebrovascular accident Acute Right femoral fracture Acute S/P ORIF (open reduction internal fixation) fracture Acute
[2016-06-02] MEDS: HYDROCODONE/APAP 5/325 TAB PO PRN (12:13)
[2016-06-02] MEDS: clonazePAM 1 MG TAB PO SCH (22:02)
[2016-06-02] MEDS: DULoxetine 30 MG CAP PO SCH (22:02)
[2016-06-02] MEDS: morphINE SR 15 MG TAB PO SCH (22:02)
[2016-06-03] MEDS: HYDROCODONE/APAP 5/325 TAB PO SCH ×6 (02:00→21:54)
[2016-06-03] MEDS: ENOXAPARIN 30 MG/0.3 ML SYR SC SCH (08:59)
[2016-06-03] MEDS: BACLOFEN 10 MG TAB PO SCH ×4 (09:02→21:53)
[2016-06-03] MEDS: [UNRECOGNIZED DRUG - OTHER] PO SCH ×2 (09:02→18:23)
[2016-06-03] MEDS: FERROUS SULFATE 325 MG TAB PO SCH (09:03)
[2016-06-03] MEDS: CHOLECALCIFEROL VIT D3 1,000 UNITS TAB PO SCH (09:03)
[2016-06-03] MEDS: clonazePAM 0.5 MG TAB PO SCH (09:04)
[2016-06-03] MEDS: SULFAMETHOX/TMP 800/160 MG 1 TAB PO SCH (09:04)
[2016-06-03] MEDS: MAGNESIUM HYDROXIDE 30 ML UDCUP PO SCH (09:06)
[2016-06-03] MEDS: CENTRUM MVI PO SCH (09:06)
--- NOTE | 2016-06-03 09:13 | SOAPPROG ---
SOAP Progress Note Assessment/Plan: Assessment/Plan: 06/03/2016- some bowel incontinence after a period of constipation, now with loose stools. MOM to PRN, scheduling miralax and senna as discussed with patient and DUNCAN Cain. * Debility and nonweightbearing on the right lower extremity following a fall from power wheelchair and right femur fracture, status post open reduction/ internal fixation on 05/21/16. Initial FIM 67 on 05/28/16; iincrease to 73 of . Slide-board transfer min - mod A depending on fatigue. Has stood in parallel bars keeping R foot off the floor. routinely assists with dressing and bathing so OT goals are limited but goal to reduce burden of care. Continue physical and occupational therapy to optimize mobility and activities of daily living. * Dysphagia: neck soft tissue stiffness, receiving myofascial work per [employer]. * Pain management. Still with muscle spasm overnight but pain improved with morphine SR 15 mg at HS starting 05/31/16, and sleeping better. Continue, scheduled hydrocodone/acetaminophen Q 4 hr and prescribed 1 tab q.4 hours p.r.n ; HS baclofen to 20 mg; continue 10 mg morning and mid-day. ROM exercised for leg extension. HS baclofen 30 mg did not help. Ordered massage therapy consult. * Chronic benzodiazepine use. She wants to taper. Changed AM clonazepam from 1 mg to 0.75 mg starting 06/01/16; continue 1 mg at HS. 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 She was able to ambulate prior to her fall and fracture. * Anemia was quite significant postsurgical, as well as thrombocytopenia. Improving. Iron deficient, on supplement. * Hypoxia. Likely due to anemia. Improving. * Constipation: on MOM QAM at home, but a bit loose in hospital. 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 Continue baclofen. * Osteoporosis. Continue cholecalciferol. Has adequate replacement pre labs . She reports that she has been on bisphosphonates in the past and subsequently teriparatide. She has been followed by a bone specialist at [facility] at the [facility], though she has not had a DEXA scan in about a year and a half. * Depression. Continue her psychiatric medications of duloxetine and clonazepam. * History of chronic urinary tract infections. Continue suppressive therapy with trimethoprim/sulfamethoxazole. * History of Clostridium difficile. Unclear how remote this was. She has no signs or symptoms of Clostridium difficile. Will observe for diarrhea. * Prophylaxis. There was a neurosurgery consultation while she was in the hospital, and risk of deep vein thrombosis currently outweighs the risk of recurrent intracerebral hemorrhage. She will be continued on enoxaparin 30 mg subcutaneous daily. She does not appear to have any need for gastrointestinal prophylaxis. Plan discharge to SNF until weightbearing restored RLE. had recent back surgery and is limited in ability to help. Discharge planned for 06/10/16. 06/03/16 09:11 06/03/16 10:57 Subjective: CC: bowel incontinence No acute events overnight. Pt had some incont of stool and loose stool after a period of constipation. Would like to back off on bowel meds, but counseled on importance of a regular bowel movement to prevent constipation and incontinence. Otherwise doing well, sleeping well, pain controlled. No new numbness, tingling or weakness. Objective: Vital Signs Temp Pulse Resp BP Pulse Ox 36.9 C 80 16 98/58 L 96 06/03/16 06:34 06/03/16 06:34 06/03/16 06:34 06/03/16 06:34 06/03/16 06:34 Laboratory Results 05/31/16 06:25 05/26/16 06:00 06/02/16 06/03/16 06/04/16 05:59 05:59 05:59 Intake Total 560 950 300 Output Total 1250 2550 600 Balance -690 -1600 -300 Physical Exam - Physical Exam General Appearance: alert, no apparent distress EENT: No scleral icterus (R), No scleral icterus (L) Respiratory: lungs clear, normal breath sounds, No respiratory distress, No accessory muscle use Cardiac/Chest: normal peripheral pulses, regular rate, rhythm, No edema Abdomen: non-tender, soft Skin: normal color, warm/dry (cool on hands) Neuro/Psych: alert, normal mood/affect ICD10 Worksheet Patient Problems: Problems Problem Status Onset Hemiparesis affecting left side as late effect of cerebrovascular accident Acute Right femoral fracture Acute S/P ORIF (open reduction internal fixation) fracture Acute
[2016-06-03] MEDS ORDERED: MAGNESIUM HYDROXIDE 30 ML UDCUP PO PRN (10:57)
[2016-06-03] MEDS: morphINE SR 15 MG TAB PO SCH (21:53)
[2016-06-03] MEDS: DULoxetine 30 MG CAP PO SCH (21:53)
[2016-06-03] MEDS: clonazePAM 1 MG TAB PO SCH (21:53)
[2016-06-03] MEDS: SENNOSIDES 1 TAB PO SCH (21:54)
[2016-06-04] MEDS: HYDROCODONE/APAP 5/325 TAB PO SCH ×6 (02:02→21:26)
[2016-06-04] MEDS: [UNRECOGNIZED DRUG - OTHER] PO SCH ×2 (08:38→17:43)
[2016-06-04] MEDS: CHOLECALCIFEROL VIT D3 1,000 UNITS TAB PO SCH (08:44)
[2016-06-04] MEDS: BACLOFEN 10 MG TAB PO SCH ×4 (08:44→21:26)
[2016-06-04] MEDS: POLYETHYLENE GLYCOL 3350 17 GM PKT PO SCH (08:45)
[2016-06-04] MEDS: SENNOSIDES 1 TAB PO SCH ×2 (08:45→20:26)
[2016-06-04] MEDS: SULFAMETHOX/TMP 800/160 MG 1 TAB PO SCH (08:45)
[2016-06-04] MEDS: clonazePAM 0.5 MG TAB PO SCH (08:46)
[2016-06-04] MEDS: FERROUS SULFATE 325 MG TAB PO SCH (08:46)
[2016-06-04] MEDS: ENOXAPARIN 30 MG/0.3 ML SYR SC SCH (08:47)
[2016-06-04] MEDS: CENTRUM MVI PO SCH (08:47)
--- NOTE | 2016-06-04 18:05 | SOAPPROG ---
SOAP Progress Note Assessment/Plan: Assessment: * Debility and nonweightbearing on the right lower extremity following a fall from power wheelchair and right femur fracture, status post open reduction/ internal fixation on 05/21/16. Initial FIM 67 on 05/28/16; increase to 73 of 06/02. Slide-board transfer min - mod A depending on fatigue. Has stood in parallel bars keeping R foot off the floor. routinely assists with dressing and bathing so OT goals are limited but goal to reduce burden of care. Continue physical and occupational therapy to optimize mobility and activities of daily living. * Dysphagia: neck soft tissue stiffness, receiving myofascial work per DELIVERY MERCHANDISER. * Pain management. Still with muscle spasm overnight but pain improved with morphine SR 15 mg at HS starting 05/31/16, and sleeping better. Continue, scheduled hydrocodone/acetaminophen Q 4 hr and prescribed 1 tab q.4 hours p.r.n ; HS baclofen to 20 mg; continue 10 mg morning and mid-day. ROM exercised for leg extension. HS baclofen 30 mg did not help. Ordered massage therapy consult. * Chronic benzodiazepine use. She wants to taper. Changed AM clonazepam from 1 mg to 0.75 mg starting 06/01/16; continue 1 mg at HS. 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 She was able to ambulate prior to her fall and fracture. * Anemia was quite significant postsurgical, as well as thrombocytopenia. Improving. Iron deficient, on supplement. * Hypoxia. Likely due to anemia. Improving. 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 Continue baclofen. * Osteoporosis. Continue cholecalciferol. Has adequate replacement pre labs . She reports that she has been on bisphosphonates in the past and subsequently teriparatide. She has been followed by a bone specialist at [facility], though she has not had a DEXA scan in about a year and a half. * Depression. Continue her psychiatric medications of duloxetine and clonazepam. * History of chronic urinary tract infections. Continue suppressive therapy with trimethoprim/sulfamethoxazole. * History of Clostridium difficile. Unclear how remote this was. She has no signs or symptoms of Clostridium difficile. Will observe for diarrhea. * Prophylaxis. There was a neurosurgery consultation while she was in the hospital, and risk of deep vein thrombosis currently outweighs the risk of recurrent intracerebral hemorrhage. She will be continued on enoxaparin 30 mg subcutaneous daily. She does not appear to have any need for gastrointestinal prophylaxis. Attended staffing, 15 min. D/W case mgmt, nursing, senior ux designer, pharmacist, PT, OT, DELIVERY MERCHANDISER. Attended family meeting, 30 min, present. had recent back surgery and is limited in ability to help. Discharge planned for 06/10/16. 06/02/16 16:33 06/04/16 18:04 Subjective: No complaints. Slept well. Pain adequately controlled. No f/c, cough/ dyspnea. Had follow-up with orthopedics today and will be NWB R leg for 6 weeks. Objective: Vital Signs Temp Pulse Resp BP Pulse Ox 36.8 C 73 14 97/50 L 98 06/04/16 06:28 06/04/16 06:28 06/04/16 06:28 06/04/16 06:28 06/04/16 06:28 Laboratory Results 05/31/16 06:25 05/26/16 06:00 06/03/16 06/04/16 06/05/16 05:59 05:59 05:59 Intake Total 950 1680 330 Output Total 2550 1150 300 Balance -1600 530 30 Physical Exam - Physical Exam General Appearance: WD/WN, alert, no apparent distress, thin Respiratory: No respiratory distress, No accessory muscle use Skin: normal color, warm/dry Neuro/Psych: alert, normal mood/affect, oriented x 3 ICD10 Worksheet Patient Problems: Problems Problem Status Onset Hemiparesis affecting left side as late effect of cerebrovascular accident Acute Right femoral fracture Acute S/P ORIF (open reduction internal fixation) fracture Acute
[2016-06-04] MEDS: clonazePAM 1 MG TAB PO SCH (20:25)
[2016-06-04] MEDS: DULoxetine 30 MG CAP PO SCH (20:25)
[2016-06-04] MEDS: morphINE SR 15 MG TAB PO SCH (20:26)
[2016-06-05] MEDS: HYDROCODONE/APAP 5/325 TAB PO SCH ×6 (02:11→21:40)
[2016-06-05] MEDS: clonazePAM 0.5 MG TAB PO SCH (08:23)
[2016-06-05] MEDS: BACLOFEN 10 MG TAB PO SCH ×4 (08:24→21:41)
[2016-06-05] MEDS: FERROUS SULFATE 325 MG TAB PO SCH (08:25)
[2016-06-05] MEDS: CHOLECALCIFEROL VIT D3 1,000 UNITS TAB PO SCH (08:25)
[2016-06-05] MEDS: ENOXAPARIN 30 MG/0.3 ML SYR SC SCH (08:25)
[2016-06-05] MEDS: POLYETHYLENE GLYCOL 3350 17 GM PKT PO SCH (08:25)
[2016-06-05] MEDS: [UNRECOGNIZED DRUG - OTHER] PO SCH ×2 (08:26→18:01)
[2016-06-05] MEDS: CENTRUM MVI PO SCH (08:27)
[2016-06-05] MEDS: SENNOSIDES 1 TAB PO SCH ×2 (08:30→20:36)
[2016-06-05] MEDS: SULFAMETHOX/TMP 800/160 MG 1 TAB PO SCH (08:30)
--- NOTE | 2016-06-05 16:33 | SOAPPROG ---
SOAP Progress Note Assessment/Plan: * Debility and nonweightbearing on the right lower extremity following a fall from power wheelchair and right femur fracture, status post open reduction/ internal fixation on 05/21/16. Initial FIM 67 on 05/28/16; increase to 73 of 06/02. Slide-board transfer min - mod A depending on fatigue. Has stood in parallel bars keeping R foot off the floor. routinely assists with dressing and bathing so OT goals are limited but goal to reduce burden of care. Continue physical and occupational therapy to optimize mobility and activities of daily living. * Dysphagia: neck soft tissue stiffness, receiving myofascial work per PAY AGENT. * Pain management. Still with muscle spasm overnight but pain improved with morphine SR 15 mg at HS starting 05/31/16, and sleeping better. Continue, scheduled hydrocodone/acetaminophen Q 4 hr and prescribed 1 tab q.4 hours p.r.n ; HS baclofen to 20 mg; continue 10 mg morning and mid-day. ROM exercised for leg extension. HS baclofen 30 mg did not help. Ordered massage therapy consult. * Chronic benzodiazepine use. She wants to taper. Changed AM clonazepam from 1 mg to 0.75 mg starting 06/01/16; continue 1 mg at HS. 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 She was able to ambulate prior to her fall and fracture. * Anemia was quite significant postsurgical, as well as thrombocytopenia. Improving. Iron deficient, on supplement. * Hypoxia. Likely due to anemia. Improving. 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 Continue baclofen. * Osteoporosis. Continue cholecalciferol. Has adequate replacement pre labs . She reports that she has been on bisphosphonates in the past and subsequently teriparatide. She has been followed by a bone specialist at [facility] at the [facility], though she has not had a DEXA scan in about a year and a half. * Depression. Continue her psychiatric medications of duloxetine and clonazepam. * History of chronic urinary tract infections. Continue suppressive therapy with trimethoprim/sulfamethoxazole. * History of Clostridium difficile. Unclear how remote this was. She has no signs or symptoms of Clostridium difficile. Will observe for diarrhea. * Prophylaxis. There was a neurosurgery consultation while she was in the hospital, and risk of deep vein thrombosis currently outweighs the risk of recurrent intracerebral hemorrhage. She will be continued on enoxaparin 30 mg subcutaneous daily. She does not appear to have any need for gastrointestinal prophylaxis. had recent back surgery and is limited in ability to help. Discharge planned for 06/10/16. Subjective: No events overnight. No complaints this a.m. Pain well ocntrolled. No AVILA or SOB Objective: Vital Signs Temp Pulse Resp BP Pulse Ox 36.7 C 77 16 92/49 L 94 06/05/16 06:47 06/05/16 06:47 06/05/16 06:47 06/05/16 06:47 06/05/16 06:47 Laboratory Results 05/31/16 06:25 05/26/16 06:00 06/04/16 06/05/16 06/06/16 05:59 05:59 05:59 Intake Total 1680 800 466 Output Total 1150 1700 400 Balance 530 -900 66 - Pending Discharge Pending Discharge Within 24 Hours: No Pending Discharge Within 48 Hours: No Physical Exam - Physical Exam General Appearance: alert, no apparent distress Neck: other (supported in power WC) Respiratory: lungs clear, normal breath sounds, other (On NC) Cardiac/Chest: regular rate, rhythm Abdomen: non-tender, soft Skin: normal color, warm/dry Neuro/Psych: alert, normal mood/affect, oriented x 3, No cognition abnormalities , No speech abnormalities ICD10 Worksheet Patient Problems: Problems Problem Status Onset Hemiparesis affecting left side as late effect of cerebrovascular accident Acute Right femoral fracture Acute S/P ORIF (open reduction internal fixation) fracture Acute
[2016-06-05] MEDS: DULoxetine 30 MG CAP PO SCH (20:30)
[2016-06-05] MEDS: morphINE SR 15 MG TAB PO SCH (20:31)
[2016-06-05] MEDS: clonazePAM 1 MG TAB PO SCH (20:31)
[2016-06-06] MEDS: HYDROCODONE/APAP 5/325 TAB PO SCH ×6 (01:07→22:01)
[2016-06-06] MEDS: clonazePAM 0.5 MG TAB PO SCH (09:13)
[2016-06-06] MEDS: ENOXAPARIN 30 MG/0.3 ML SYR SC SCH (09:13)
[2016-06-06] MEDS: SULFAMETHOX/TMP 800/160 MG 1 TAB PO SCH (09:13)
[2016-06-06] MEDS: SENNOSIDES 1 TAB PO SCH ×2 (09:14→22:02)
[2016-06-06] MEDS: BACLOFEN 10 MG TAB PO SCH ×4 (09:14→22:02)
[2016-06-06] MEDS: POLYETHYLENE GLYCOL 3350 17 GM PKT PO SCH (09:14)
[2016-06-06] MEDS: FERROUS SULFATE 325 MG TAB PO SCH (09:15)
[2016-06-06] MEDS: CHOLECALCIFEROL VIT D3 1,000 UNITS TAB PO SCH (09:15)
[2016-06-06] MEDS: [UNRECOGNIZED DRUG - OTHER] PO SCH ×2 (09:16→17:12)
[2016-06-06] MEDS: CENTRUM MVI PO SCH (09:17)
[2016-06-06] MEDS: HYDROCODONE/APAP 5/325 TAB PO PRN (13:01)
[2016-06-06] MEDS: DULoxetine 30 MG CAP PO SCH (22:01)
[2016-06-06] MEDS: clonazePAM 1 MG TAB PO SCH (22:02)
[2016-06-06] MEDS: morphINE SR 15 MG TAB PO SCH (22:02)
--- NOTE | 2016-06-06 22:57 | SOAPPROG ---
SOAP Progress Note Assessment/Plan: * Debility and nonweightbearing on the right lower extremity following a fall from power wheelchair and right femur fracture, status post open reduction/ internal fixation on 05/21/16. Initial FIM 67 on 05/28/16; increase to 73 of 06/02. Slide-board transfer min - mod A depending on fatigue. Has stood in parallel bars keeping R foot off the floor. routinely assists with dressing and bathing so OT goals are limited but goal to reduce burden of care. Continue physical and occupational therapy to optimize mobility and activities of daily living. * Dysphagia: neck soft tissue stiffness, receiving myofascial work per CONTRACT ADMIN. * Pain management. Still with muscle spasm overnight but pain improved with morphine SR 15 mg at HS starting 05/31/16, and sleeping better. Continue, scheduled hydrocodone/acetaminophen Q 4 hr and prescribed 1 tab q.4 hours p.r.n ; HS baclofen to 20 mg; continue 10 mg morning and mid-day. ROM exercised for leg extension. HS baclofen 30 mg did not help. Ordered massage therapy consult. * Chronic benzodiazepine use. She wants to taper. Changed AM clonazepam from 1 mg to 0.75 mg starting 06/01/16; continue 1 mg at HS. 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 She was able to ambulate prior to her fall and fracture. * Anemia was quite significant postsurgical, as well as thrombocytopenia. Improving. Iron deficient, on supplement. * Hypoxia. Likely due to anemia. Improving. 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 Continue baclofen. * Osteoporosis. Continue cholecalciferol. Has adequate replacement pre labs . She reports that she has been on bisphosphonates in the past and subsequently teriparatide. She has been followed by a bone specialist at [facility] at the [facility], though she has not had a DEXA scan in about a year and a half. * Depression. Continue her psychiatric medications of duloxetine and clonazepam. * History of chronic urinary tract infections. Continue suppressive therapy with trimethoprim/sulfamethoxazole. * History of Clostridium difficile. Unclear how remote this was. She has no signs or symptoms of Clostridium difficile. Will observe for diarrhea. * Prophylaxis. There was a neurosurgery consultation while she was in the hospital, and risk of deep vein thrombosis currently outweighs the risk of recurrent intracerebral hemorrhage. She will be continued on enoxaparin 30 mg subcutaneous daily. She does not appear to have any need for gastrointestinal prophylaxis. had recent back surgery and is limited in ability to help. Discharge planned for 06/10/16. Subjective: No events. No complaints today. Pain well controlled, BM this afternoon. Objective: Vital Signs Temp Pulse Resp BP Pulse Ox 36.8 C 97 15 101/60 96 06/06/16 19:01 06/06/16 19:01 06/06/16 19:01 06/06/16 20:00 06/06/16 19:01 Laboratory Results 05/31/16 06:25 05/26/16 06:00 06/05/16 06/06/16 06/07/16 05:59 05:59 05:59 Intake Total 800 616 Output Total 1700 1250 Balance -900 -664 - Pending Discharge Pending Discharge Within 24 Hours: No Pending Discharge Within 48 Hours: No Physical Exam - Physical Exam General Appearance: alert, no apparent distress Neck: non-tender Respiratory: lungs clear, normal breath sounds, respiratory distress (on O2 by NC) Cardiac/Chest: regular rate, rhythm Abdomen: non-tender, soft Extremities: No pedal edema Neuro/Psych: alert, normal mood/affect, oriented x 3, No cognition abnormalities , No speech abnormalities ICD10 Worksheet Patient Problems: Problems Problem Status Onset Hemiparesis affecting left side as late effect of cerebrovascular accident Acute Right femoral fracture Acute S/P ORIF (open reduction internal fixation) fracture Acute
[2016-06-07] MEDS: HYDROCODONE/APAP 5/325 TAB PO SCH ×6 (02:58→22:16)
[2016-06-07] MEDS: CHOLECALCIFEROL VIT D3 1,000 UNITS TAB PO SCH (08:24)
[2016-06-07] MEDS: BACLOFEN 10 MG TAB PO SCH ×4 (08:24→22:16)
[2016-06-07] MEDS: ENOXAPARIN 30 MG/0.3 ML SYR SC SCH (08:25)
[2016-06-07] MEDS: FERROUS SULFATE 325 MG TAB PO SCH (08:25)
[2016-06-07] MEDS: POLYETHYLENE GLYCOL 3350 17 GM PKT PO SCH (08:26)
[2016-06-07] MEDS: SENNOSIDES 1 TAB PO SCH ×2 (08:26→22:17)
[2016-06-07] MEDS: SULFAMETHOX/TMP 800/160 MG 1 TAB PO SCH (08:27)
[2016-06-07] MEDS: [UNRECOGNIZED DRUG - OTHER] PO SCH ×2 (08:27→17:37)
[2016-06-07] MEDS: CENTRUM MVI PO SCH (08:28)
[2016-06-07] MEDS: clonazePAM 0.5 MG TAB PO SCH (08:38)
--- NOTE | 2016-06-07 12:18 | SOAPPROG ---
SOAP Progress Note Assessment/Plan: Assessment: * Debility and nonweightbearing on the right lower extremity following a fall from power wheelchair and right femur fracture, status post open reduction/ internal fixation on 05/21/16. Initial FIM 67 on 05/28/16; increase to 73 of 06/02. Slide-board transfer min - mod A depending on fatigue. Has stood in parallel bars keeping R foot off the floor. routinely assists with dressing and bathing so OT goals are limited but goal to reduce burden of care. Continue physical and occupational therapy to optimize mobility and activities of daily living. * Dysphagia: neck soft tissue stiffness, receiving myofascial work per [employer]. * Pain management. Still with muscle spasm overnight but pain improved with morphine SR 15 mg at HS starting 05/31/16, and sleeping better. Continue, scheduled hydrocodone/acetaminophen Q 4 hr and prescribed 1 tab q.4 hours p.r.n ; HS baclofen to 20 mg; continue 10 mg morning and mid-day. ROM exercised for leg extension. HS baclofen 30 mg did not help. Ordered massage therapy consult. * Chronic benzodiazepine use. She wants to taper. Changed AM clonazepam from 1 mg to 0.75 mg starting 06/01/16; taper to 0.5 mg QD on 06/08/16; continue 1 mg at HS. 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 She was able to ambulate prior to her fall and fracture. * Anemia was quite significant postsurgical, as well as thrombocytopenia. Improving. Iron deficient, on supplement. * Hypoxia. Likely due to anemia. Improving. 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 Continue baclofen. * Osteoporosis. Continue cholecalciferol. Has adequate replacement pre labs . She reports that she has been on bisphosphonates in the past and subsequently teriparatide. She has been followed by a bone specialist at [facility] at the [facility], though she has not had a DEXA scan in about a year and a half. * Depression. Continue her psychiatric medications of duloxetine and clonazepam. * History of chronic urinary tract infections. Continue suppressive therapy with trimethoprim/sulfamethoxazole. * History of Clostridium difficile. Unclear how remote this was. She has no signs or symptoms of Clostridium difficile. Will observe for diarrhea. * Prophylaxis. There was a neurosurgery consultation while she was in the hospital, and risk of deep vein thrombosis currently outweighs the risk of recurrent intracerebral hemorrhage. She will be continued on enoxaparin 30 mg subcutaneous daily. She does not appear to have any need for gastrointestinal prophylaxis. had recent back surgery and is limited in ability to help. Discharge planned for 06/10/16. 06/07/16 12:17 06/07/16 12:31 Subjective: Did not sleep as well last ngiht. Morphine SR was given at 10 instead of 9; she 's not sure that's why but requests that it be given at 9 PM. O/W w/out complaints. Feeling stronger. Objective: Vital Signs Temp Pulse Resp BP Pulse Ox 36.8 C 88 16 112/68 97 06/07/16 06:35 06/07/16 08:51 06/07/16 06:35 06/07/16 08:51 06/07/16 08:51 Laboratory Results 05/31/16 06:25 05/26/16 06:00 06/06/16 06/07/16 06/08/16 05:59 05:59 05:59 Intake Total 616 240 Output Total 1250 300 250 Balance -634 -300 -10 Physical Exam - Physical Exam General Appearance: WD/WN, alert, mild distress, thin Respiratory: normal breath sounds, No crackles, No rhonchi, No wheezing Cardiac/Chest: regular rate, rhythm, No edema, No diastolic murmur, No systolic murmur Skin: normal color, warm/dry Neuro/Psych: alert, normal mood/affect, oriented x 3, motor weakness (LUE & LLE) ICD10 Worksheet Patient Problems: Problems Problem Status Onset Hemiparesis affecting left side as late effect of cerebrovascular accident Acute Right femoral fracture Acute S/P ORIF (open reduction internal fixation) fracture Acute
[2016-06-07] MEDS ORDERED: clonazePAM 0.5 MG TAB PO SCH (12:31)
[2016-06-07] MEDS: DULoxetine 30 MG CAP PO SCH (22:16)
[2016-06-07] MEDS: morphINE SR 15 MG TAB PO SCH (22:17)
[2016-06-07] MEDS: clonazePAM 1 MG TAB PO SCH (22:35)
[2016-06-08] MEDS: HYDROCODONE/APAP 5/325 TAB PO SCH ×3 (02:24→09:59)
[2016-06-08 07:22] VITALS: BP 104/73; PULSE 68; RESP 17; TEMP 98.3; O2SAT 97
[2016-06-08] MEDS: ENOXAPARIN 30 MG/0.3 ML SYR SC SCH (08:46)
[2016-06-08] MEDS: BACLOFEN 10 MG TAB PO SCH (08:47)
[2016-06-08] MEDS: CHOLECALCIFEROL VIT D3 1,000 UNITS TAB PO SCH (08:47)
[2016-06-08] MEDS: SENNOSIDES 1 TAB PO SCH (08:47)
[2016-06-08] MEDS: SULFAMETHOX/TMP 800/160 MG 1 TAB PO SCH (08:47)
[2016-06-08] MEDS: POLYETHYLENE GLYCOL 3350 17 GM PKT PO SCH (08:47)
[2016-06-08] MEDS: FERROUS SULFATE 325 MG TAB PO SCH (08:47)
[2016-06-08] MEDS: [UNRECOGNIZED DRUG - OTHER] PO SCH (08:57)
[2016-06-08] MEDS: CENTRUM MVI PO SCH (08:58)
--- NOTE | 2016-06-08 16:06 | GDS ---
[f rep st] DISCHARGE SUMMARY ADMITTING DIAGNOSIS: Right hip fracture, for rehabilitation. DISCHARGE DIAGNOSIS: Right hip fracture, for rehabilitation. SECONDARY DIAGNOSES: Impaired mobility, impaired self-care, dysphagia, pain, spasticity, anxiety, history of stroke, anemia, iron deficiency type, hypoxia, osteoporosis, depression, chronic urinary tract infection, history of Clostridium difficile. PROCEDURES: None. CONSULTATIONS: None. HISTORY OF PRESENT ILLNESS: Please see the full H and P for details, but briefly, this is a 70-year-old female with a prior stroke and impaired mobility and self-care, now with right hip fracture after a fall, status post ORIF with significant step-off in her function, admitted for inpatient rehabilitation. HOSPITAL COURSE: The patient was admitted for inpatient rehabilitation and remained relatively stable from a medical standpoint throughout her admission. From a functional standpoint, she was admitted with a FIM of 67 and made moderate gains, and on discharge, she was using a power wheelchair with a sliding board, moderate assistance for most transferring. She is otherwise independent once in her power wheelchair. Regarding her cognition, she is independent to modified independence, and she was admitted with some dysphagia, but was tolerating regular diet and liquids on liquids on discharge. She required additional time for IADLs and ADLs, requiring cues and supervision. She was still non weightbearing on her right lower extremity until orthopedic surgery followup. From a medical standpoint, she also required oxygen throughout her admission at a low level, thought due to anemia. She had pain from muscle spasticity that was improved with some increased baclofen at night and positioning, and she may still require some positioning assistance at night. Please see discharge medications for present doses. Additionally, she was on a chronic benzodiazepine for anxiety, and she was interested in tapering. On discharge, she was down to 1/2 mg in the morning and 1 mg at night, and was tolerating this well. Additionally, her anemia appeared to be responding to iron based on nucleated red blood cell counts, and she was continuing on iron replacement, and that can be rechecked in another 1-2 months. Additionally, she had a number of stable issues, including osteoporosis, depression, history of chronic urinary tract infections, history of Clostridium difficile, all of which were continued on their present regimens and were unchanged. It was anticipated that the patient was going to be able to transfer and live at home with help from family, however, she still required a significant amount of assistance given her non weightbearing status, and was [facility] for [facility] care at [facility]. DISPOSITION: nursing home facility, [facility]. DISCHARGE MEDICATIONS: Please see the discharge list for full details. Briefly , it is as follows: 1. Baclofen 10 mg p.o. q.h.s. 2. Clonazepam 0.5 mg p.o. daily. 3. Clonazepam 1 mg p.o. q.h.s. 4. Morphine SR 15 mg p.o. q.h.s. 5. Polyethylene glycol or MiraLAX 17 g p.o. daily. 6. Sennosides 1 tab p.o. b.i.d. 7. Hydrocodone/acetaminophen 5/325 one tab p.o. q.4 hours. 8. Morphine sulfate 15 mg p.o. q.h.s. 9. Trimethoprim/sulfamethoxazole or Bactrim 1 tab p.o. daily. 10. Beta carotene 1 tab p.o. b.i.d. 11. Carboxymethylcellulose or Refresh CelluVisc 1 drop each eye q.4 hours p.r.n. for dry eyes. 12. Duloxetine 60 mg p.o. q.h.s. 13. Cholecalciferol vitamin D3 1000 units p.o. daily. 14. Baclofen 10 mg p.o. b.i.d. 15. Enoxaparin 30 mg subcutaneous daily. 16. Ferrous sulfate 325 mg p.o. b.i.d. with meals. DISCHARGE INSTRUCTIONS: The patient will get additional therapies with PT/OT, and possibly Speech Therapy at the [facility]. She can continue on regular diet, thin liquids, with assistance with her ADLs and IADLs, and continue with power wheelchair mobility. She may need additional assistance at night for spasticity management. She should continue to be non weightbearing on the right lower extremity. PENDING STUDIES: None. RECOMMENDATIONS: Follow up with the primary care physician, follow up with her orthopedic surgeon, and continue care with her specialist. FOLLOWUP: As noted above, she should follow up with Dr. Fernandez 3 days after her discharge from [facility], as well as Dr. Bobby. A total of 35 minutes was spent on discharge activities for the patient on the floor today. I saw her before she left, and her vital signs were stable. I answered questions regarding her medications and anemia management. /[id number]/MODL MTDD
--- NOTE | 2016-06-09 13:50 | PDOREHIP ---
Admission [facility] - Admission - 3 Day Assessment Period Admission Date/Day 1: 05/25/16 Day 2: 05/26/16 Day 3: 05/27/16 - Active Diagnoses Comorbidities and Co-existing Conditions at Admission: 99893. None of the Above - Skin Conditions Unhealed Pressure Ulcer (1 or more/Stage 1 or >)-Admission: 0. No (Healed pressure ulcer on sacrum) Discharge [facility] - Discharge - 3 Day Assessment Period 2 Days Prior to Anticipated Discharge Date: 06/05/16 1 Day Prior to Anticipated Discharge Date: 06/06/16 Anticipated Discharge Date: 06/07/16 - Discharge Skin Conditions Unhealed Pressure Ulcer (1 or more/Stage 1 or >)-Discharge: 0. No (Healed pressure ulcer on sacrum) - Healed Pressure Ulcer(s) Pressure Ulcer-Present on Admit and Healed on Discharge: Yes
== END 2016-06-08 12:30 | DRG 560 ==
LOC: BREH 15:07
PROVIDERS: ADMIT Internal Medicine; ATTEND Internal Medicine
PROC: F08Z7ZZ Vocational Activities and Functional Community or Work Reintegration Skills Treatment (ICD-10-PCS; principal; 2016-05-25)
PROC: F07M3ZZ Motor Function Treatment of Musculoskeletal System - Whole Body (ICD-10-PCS; principal; 2016-05-25)
DX: S72.91XD Unspecified fracture of right femur, subsequent encounter for closed fracture with routine healing (principal); I69.851 Hemiplegia and hemiparesis following other cerebrovascular disease affecting right dominant side; V00.81 Accident with wheelchair (powered); Y92.414 Local residential or business street as the place of occurrence of the external cause; Z91.81 History of falling; R25.2 Cramp and spasm; M81.0 Age-related osteoporosis without current pathological fracture; R13.10 Dysphagia, unspecified; D50.9 Iron deficiency anemia, unspecified; F32.9 Major depressive disorder, single episode, unspecified; Z87.440 Personal history of urinary (tract) infections
CPT/HCPCS: 92507-GN; 92526-GN; 92610-GN; 97110-GO; 97110-GP; 97112-GO; 97112-GP; 97162-GP; 97166-GO; 97530-GO; 97530-GP; 97535-GO; 99366-GO; J1650

== ENCOUNTER → 2016-09-23 | Outpatient (CLI) | payer OTHER, MEDICARE | LOC: FIMAGING 10:55 | DX: R13.10 Dysphagia, unspecified (principal) | CPT/HCPCS: 74230; 92611; G8996; G8997; G8998 ==